=== PATIENT | female | born 1990 | race Caucasian/White ===

== ENCOUNTER 2025-05-20 09:51 | Emergency (ER) | payer OTHER, SELFPAY ==
[2025-05-20 09:53] VITALS: BP 127/91
--- NOTE | 2025-05-20 10:40 | ED.SKININJ ---
HPI-Injury
General
Chief Complaint: Skin Problem
Source: patient
Exam Limitations: none
Time Seen by Provider: 05/20/25 10:27
Nursing documentation reviewed up to this point in time: agreed with
History of Present Illness-Injury
Initial Injury comments:
35-year-old female states she awakened with bruising and numbness to the right fifth finger yesterday, no recollection of overuse or injury. She went to urgent care had an x-ray which she was told was negative and that it may be a spider bite as
there is a tiny red dot on the dorsum of the finger.
She states this is not a spider bite that she calls the red dot on her finger' there is no way this is a spider bite.'
She is upset because 'they only took a 2 view x-ray of my finger, they did not even x-ray the underside of my finger.
She states she tried to call the hand doctor and could not get through. She states 'I can even feel my finger.'
Past History
Past History
ED Past Medical History: Asthma and Psychiatric (Anxiety/depression)
ED Past Surgical History: Appendectomy
Social History
Tobacco: Non-smoker
Alcohol: None
Drug: None
Personal: Single
Living: with family
Employment: Not employed
Review of Systems
Review of Systems
Allergies reviewed?: Yes
All Other Systems: ROS reviewed and negative except as documented in HPI and ROS
Musculoskeletal: Reports other (bruising, numbness right 5th finger)
Phy Exam
Physical Exam
Physical Exam:
PHYSICAL EXAMINATION:
General: no apparent distress, not acutely ill
Neuro: alert and oriented.
Psychiatric: well kept. interactive and cooperative
Musculoskeletal: Moves with ease
Skin: Warm, pink. Right fifth finger with mild ecchymosis, no swelling, all tendon function is intact. Brisk capillary refill. Subjectively numb. No bony tenderness.
Course
Vital Signs
Initial and Last Documented VS:
Initial Vital Signs
Temp Pulse Resp BP Pulse Ox
98.5 F 91 16 127/91 98
05/20/25 09:53 05/20/25 09:53 05/20/25 09:53 05/20/25 09:53 05/20/25 09:53
Last Documented Vital Signs
Temp Pulse Resp BP Pulse Ox
98.5 F 91 16 127/91 98
05/20/25 09:53 05/20/25 09:53 05/20/25 09:53 05/20/25 09:53 05/20/25 10:46
MDM/Problems Addressed
Differential Diagnosis Includes:
Contusion, sprain, fracture
MDM/Problems Addressed:
35-year-old female states she awakened with bruising and numbness to the right fifth finger yesterday, no recollection of overuse or injury. She went to [facility] had an x-ray which she was told was negative and that it may be a spider
bite as there is a tiny red dot on the dorsum of the finger.
She states this is not a spider bite that she calls the red dot on her finger' there is no way this is a spider bite.'
She is upset because 'they only took a 2 view x-ray of my finger, they did not even x-ray the underside of my finger.
She states she tried to call the hand doctor and could not get through. She states 'I can even feel my finger.'
The finger is with good range of motion all tendon function intact. Fingers warm, scattered ecchymosis about the finger, brisk capillary refill, no significant tenderness.
I printed out copies of her finger x-ray, there are indeed 3 views and I provided her with pictures of all 3 views and reviewed them with her showing her that there is no bony abnormality.,
Explained, no indication for splinting, moving it will enhance circulation for healing.
Referral to hand specialist as needed.
*Pulse Oximetry
SaO2: 98
Oxygen Mode of Delivery: Room air
Patient hypoxic: not evaluated
*Critical Care Note
Total Time (30-74mins, 75-104mins- exclusive of procedures): Not Applicable
ED Attending Note
-
Portions of this chart may have been created with voice recognition software.� Occasional wrong word or��sound alike� substitutions may have occurred due to the inherent limitations of voice recognition software.
Discharge Plan
Departure
Patient Disposition: Home (Routine Discharge)
Date of Disposition: 05/20/25
Time of Disposition: 10:38
Patient with high blood pressure during this ER visit?: No
Condition: Good
Discharge Problem:
Superficial bruising of finger
Instructions: Contusion
Prescriptions:
No Action
mometasone [Nasonex] 17 GM spray,non-aerosol
1 spray intranasal HS PRN (Reason: congestion)
norethin-e.estradiol triphasic [Nortrel (28)] 1 TAB tablet
1 tab PO DAILY
oseltamivir 75 MG capsule
75 mg PO BID Qty: 9 0RF
naproxen 375 MG tablet
375 mg PO BID PRN (Reason: headache) Qty: 14 0RF
Rx Instructions:
Take with food.
Referrals:
Elly Rodriguez PA-C [Family Provider, Internal Medicine] - As needed
Nitish Solitario MD [Active, Orthopedics] - As needed
Activity Restrictions/Additional Instructions:
As we discussed, your xrays are normal.
Treat this like a contusion and see your provider or the hand specialist if not much better within the next 2 weeks.
Interventions
Interventions:
*Risk Screen - Suicide Last Done: 05/20/25 09:54
*Neglect/Abuse Screening Last Done: 05/20/25 09:54
*Nursing Disposition Last Done: 05/20/25 11:08
Discharge Date and Time
Discharge Date/Time: 05/20/25 11:08
Print Language: SAMI
== END 2025-05-20 11:08 | disposition home or self-care (01) ==
LOC: EMR 09:51
PROVIDERS: EMERGENCY PHYSICIAN Emergency Medicine; FAMILY PHYSICIAN Physician Assistant
DX: S60.051A Contusion of right little finger without damage to nail, initial encounter (principal); X58.XXXA Exposure to other specified factors, initial encounter; J45.909 Unspecified asthma, uncomplicated; Z90.49 Acquired absence of other specified parts of digestive tract; F41.8 Other specified anxiety disorders
CPT/HCPCS: 99282